=== PATIENT | female | born 1935 | race Caucasian/White ===

== ENCOUNTER 2017-01-17 08:04 | Inpatient (IN) ==
--- NOTE | 2017-01-17 08:41 | Diag Imaging Result Doc PS360 ---
EXAM: RIBS UNILAT W/PA CHEST LEFT HISTORY: fall TECHNIQUE: PA and left rib series, five views COMMENT: There is a pneumothorax on the left with slight shift of the mediastinum to the right which may indicate a degree of tension. The right lower lobe is partially collapsed. The apical portion of the pneumothorax measures in excess of 2.5 cm. There may be COPD. There is some evidence of old rib fractures on the right specifically the lateral fourth and fifth ribs. No appreciable left rib fractures are present. The heart and pulmonary vascularity are within normal limits. IMPRESSION: Left pneumothorax. The findings were discussed with Eric Nguyen MD at 01/17/2017 8:37 AM. Electronically signed by Jw Garcia 01/17/2017 8:39 AM
[2017-01-17] MEDS ORDERED: MORPHINE ONE (09:07)
[2017-01-17] MEDS ORDERED: ZOFRAN ONE (09:07)
[2017-01-17] MEDS ORDERED: ZOFRAN IV ONE ×2 (09:13→11:05)
[2017-01-17] MEDS ORDERED: MORPHINE IV ONE ×2 (09:13→11:05)
--- NOTE | 2017-01-17 09:58 | Diag Imaging Result Doc PS360 ---
EXAM: CHEST-PORTABLE HISTORY: CHEST TUBE PLACEMENT TECHNIQUE: Portable sitting AP COMPARISON: Compared to taken at 8:27 AM FINDINGS: Interval placement of a small left-sided chest tube. Reexpansion of the left lung with marked decrease in the size of left-sided pneumothorax. No definite pneumothorax identified on the current exam. Right lung remains well expanded and clear. Cardiomegaly. IMPRESSION: Reexpansion of the left lung following placement of a left-sided chest tube. Electronically signed by Dwayne Eddy 01/17/2017 9:55 AM
[2017-01-17 11:25] LABS: HEMOGLOBIN 13.8 g/dL (12.0-16.0); MCH 29.7 PG (27-31); MCHC 33.7 g/dL (33-37); MCV 88.4 FL (81-99); MPV 10.1 FL (7.4-10.4); RBC 4.64 XMIL (4.2-5.4)
[2017-01-17 11:44] LABS: AGAP 14; ALBUMIN 3.8 g/dL (3.5-5.0); ALKALINE PHOSPHATASE 72 U/L (32-104); BUN 14 mg/dL (8-22); CALCIUM 8.8 mg/dL (8.8-10.2); CHLORIDE 107 mmol/L (98-107); COSMO 288; GOT 19 U/L (10-30); GPT 13 U/L (10-36); POTASSIUM 3.9 mmol/L (3.5-5.1); SODIUM 145 mmol/L (136-145); TCO2 24 mmol/L (25-35); TOTAL BILIRUBIN 0.33 mg/dL (0.20-1.00); TOTAL PROTEIN 7.4 g/dL (6.3-8.3)
[2017-01-17 11:45] LABS: INR 0.96; PROTIME 10.1 Seconds (9.2-11.7)
[2017-01-17] MEDS ORDERED: ZOFRAN IV PRN (12:24)
--- NOTE | 2017-01-17 13:05 | HISTORY AND PHYSICAL ---
PRIMARY CARE PHYSICIAN: Dr. Yared Ricks. CHIEF COMPLAINT: Fall and rib pain. HISTORY OF PRESENT ILLNESS: Mrs. Francis is a pleasant 81-year-old, female with a history of hypothyroidism, SVT, GERD, migraine headaches, who sustained an accidental trip and fall yesterday while walking to her bed. At that time, she fell in between a coffee table and couch, her face hit the glass portion of the table and the glass did not break but flipped over to her back and hit her on the back which caused a tremendous amount of pain. Overnight she was experiencing pain on the left side, left shoulder and had some shortness of breath. This morning, the pain became to the point where she could not bear it anymore and came to the ER. In the ER, she had a chest x-ray done which showed a left-sided pneumothorax. Dr. Nguyen in the ER placed a chest tube, post procedure chest x-ray showed very good improvement of the pneumothorax. Her laboratory data is unremarkable. General Surgery has been consulted for chest tube management and the patient is now going to be admitted for further treatment and evaluation. Of note, we also went ahead and ordered a CT of the head and C-spine without contrast as she did hit her head but she denies any visual disturbances or neck pain but she is reporting a headache. PAST MEDICAL HISTORY: 1. Hypothyroidism. 2. Depression. 3. Migraine headaches. 4. SVT controlled on beta-zaria therapy. 5. GERD. 6. Recent diagnosis of bronchitis on antibiotic therapy. PAST SURGICAL HISTORY: She has had a hysterectomy and 2 uterine masses removed which were benign. SOCIAL HISTORY: The patient is . She lives alone. She denies tobacco, alcohol or drug use. FAMILY HISTORY: Noncontributory. REVIEW OF SYSTEMS: Fourteen-point review of systems obtained and found to be negative with the exception of the HPI. ALLERGIES: No known drug allergies. HOME MEDICATIONS: Tessalon Perles 200 mg t.i.d., Omnicef 300 mg p.o. b.i.d., Celexa 40 mg daily, Synthroid 125 mcg p.o. daily, Lopressor 50 mg daily, Prilosec 20 mg b.i.d., Topamax 150 mg daily. PHYSICAL EXAMINATION: VITAL SIGNS: Blood pressure is 120/63, heart rate 71, respiratory rate for 14, O2 saturation 99% on 2 L. Temperature is 98.1 degrees. GENERAL: This is an elderly female, lying in hospital bed. No acute distress. NEUROLOGIC: The patient is a bit sleepy from pain medicine but she is oriented and follows commands without focal deficits. HEENT: Head is atraumatic, normocephalic. Her pupils are equal, round, reactive to light. Oral mucosa is moist. Oropharynx is clear. NECK: Supple. There is no JVD or carotid bruits. CHEST: Clear to auscultation bilaterally. Diminished over the left lung base. Chest tube is noted of the left lateral lung. Dressing is clean, dry, and intact. Chest tube shows no leaks. ABDOMEN: Soft, nondistended, nontender. Bowel sounds are positive. EXTREMITIES: Without edema, clubbing or cyanosis. Pulses are palpable bilaterally. DIAGNOSTIC DATA: Ribs with chest x-ray showed a left-sided pneumothorax. Chest x-ray post chest tube insertion shows re-expansion of the left lung following placement of left- sided chest tube. LAB WORK: WBC 9.43, hemoglobin 13.8, hematocrit 41.0 platelet count 271,000. PT 10.1, INR 0.96. Sodium 145, potassium 3.9, chloride 107, CO2 24, anion gap 14, BUN 14, creatinine 0.8, glucose 86, LFTs within normal limits. Albumin 3.8. ASSESSMENT AND PLAN: 1. Fall with left-sided pneumothorax: Chest tube has been inserted. We will consult Dr. Reynoso with General Surgery and continue pain management and check daily chest x- rays as well as daily labs. Given the fact that she did hit her face on the table we are going to check a head and C-spine CT without contrast. 2. Hypothyroidism: We will check a TSH in the morning and continue her Synthroid. 3. Supraventricular tachycardia: Rate is normal and rhythm is regular. We will monitor on telemetry. Continue her metoprolol. 4. Migraine headaches. Continue Topamax as needed. 5. Gastroesophageal reflux disease: Chronic and stable, continue home medications. 6. The patient may need some physical therapy and rehab secondary to the pain. We will monitor progress closely and consult physical therapy while she is here. 7. DVT prophylaxis. With SCDs. Further recommendations to follow. Dictated by CESIA Crespo for José Miguel Taylor MD cc: CESIA Crespo MD Kenneth E. Mashburn, MD I have seen and examined the patient. I agree with the above evaluation and plan - Left Pneumothorax s/p chest tube placement. chest x-ray reveals resolution. MTDD
--- NOTE | 2017-01-17 14:06 | Diag Imaging Result Doc PS360 ---
EXAM: HEAD/C-SPINE W/O CONTRAST HISTORY: fall, head injury TECHNIQUE: COMPARISON: None. FINDINGS: Head: No parenchymal hemorrhage. No epidural or subdural hematoma. No subarachnoid hemorrhage. No skull fracture. No sinus opacification. Minimal mucus in the right and left sphenoid sinuses. Cervical spine: There is mild scoliosis. No precervical soft tissue swelling. No subluxation. No fracture. IMPRESSION: No injury to the head or cervical spine. Electronically signed by Dwayne Eddy 01/17/2017 2:04 PM
[2017-01-17] MEDS: MORPHINE IV PRN ×3 (15:10→23:44)
[2017-01-17] MEDS: DUONEB (A & A) INH SCH ×3 (16:08→22:48)
--- NOTE | 2017-01-17 17:00 | CONSULTATION ---
DATE OF CONSULTATION: 01/17/2017 REQUESTING PHYSICIAN: Dr. Taylor with the hospitalist service. CONSULT REGARDING: Left pneumothorax. HISTORY OF PRESENT ILLNESS: An 81-year-old female who fell on her coffee table and her couch last night and experienced left chest pain. She was initially seen in the emergency department, found to have a left-sided pneumothorax which was fixed by Dr. Nguyen in the emergency department with a chest tube placement. She reports that after her chest tube was placed she is breathing better. She is having no chest pain at this point besides chest wall pain. She denies any kind of shortness of breath. She did have a postprocedural chest x-ray that showed re-expansion of her lung. I was asked to evaluate for management of the chest tube. PAST MEDICAL HISTORY: Includes: 1. Hypothyroidism. 2. Depression. 3. Migraine headaches. 4. Supraventricular tachycardia. 5. Gastroesophageal reflux disease. 6. Recent bronchitis. PAST SURGICAL HISTORY: Includes hysterectomy. FAMILY HISTORY: Reviewed with patient, noncontributory. SOCIAL HISTORY: Lives alone denies alcohol, tobacco or illicit drugs. ALLERGIES: None. HOME MEDICATIONS: Tessalon Perles, Omnicef, Celexa, Synthroid, Lopressor, Prilosec, Topamax. REVIEW OF SYSTEMS: A full 10 point review of systems obtained, negative other than specified in HPI. PHYSICAL EXAMINATION: Vital Signs: Patient is currently afebrile. Her vital signs have been stable. Her O2 saturation is 97% on 0.5 L nasal cannula. General Exam: No acute distress. Alert, interactive, female, looks stated age. HEENT: Normocephalic, atraumatic. Pupils equal, round, reactive to light. Mucous membranes moist. Oropharynx benign. Neck: Supple. Trachea midline. Cardiovascular: Regular rate and rhythm. Lungs: Grossly clear. Chest wall: Tenderness in the left side. Abdomen: Soft, nontender, nondistended. Extremities: Moves all extremities. Neurologic: Grossly intact. Skin: No signs of jaundice. Vascular: All extremities perfused. DIAGNOSTIC DATA: Laboratory reviewed. Essentially normal chest x-ray and CT scans reviewed. ASSESSMENT AND PLAN: An 81-year-old, female with left-sided pneumothorax and multiple medical comorbidities. 1. Left-sided pneumothorax. At this time the chest tube has resolved the pneumothorax. I placed a chest tube to water seal. We will recheck the chest x-ray in the morning. If it is still expanded we will remove. 2. Multiple medical comorbidities currently being managed by the hospitalist service. cc: William Reynoso MD
[2017-01-17] MEDS: PRILOSEC PO SCH (21:29)
[2017-01-18] MEDS: DUONEB (A & A) INH SCH ×6 (03:21→22:49)
[2017-01-18] MEDS: MORPHINE IV PRN ×3 (04:00→13:41)
--- NOTE | 2017-01-18 06:01 | PROGRESS NOTE ---
DATE: 01/18/2017 SUBJECTIVE: Patient doing okay. No major issues. No shortness of breath. She does have some neck and head discomfort after her fall but again, no other issues. OBJECTIVE: Vital Signs: Patient is currently afebrile. Her vital signs are stable. General Examination: No acute distress. Cardiovascular: Regular rate and rhythm. Lungs: Grossly clear. Chest: Chest tube in the left side does not change with tidal volumes. Abdomen: Soft, nontender, nondistended. Extremities: Moves all extremities. Neurologic: Grossly intact. Skin: No signs of jaundice. Vascular: All extremities perfused. Laboratory Data: None. Chest x-ray currently pending. ASSESSMENT/PLAN: An 81-year-old, female, status post fall with left-sided pneumothorax. 1. Multiple medical comorbidities, currently being managed by the hospitalist service. 2. Left-sided pneumothorax. At this time, given the way her chest tube is not changing with respirations, I suspect there is a chance that the chest tube has already been slightly pulled out of the chest cavity. We will follow up with chest x-ray. If it is out and the lung is still up, we will remove the chest tube at the bedside. If the chest tube is out and lung is still down, we will consider placing a larger caliber chest tube. cc: William Reynoso MD
--- NOTE | 2017-01-18 06:20 | Diag Imaging Result Doc PS360 ---
EXAM: CHEST-PORTABLE HISTORY: pneumothorax TECHNIQUE: Portable AP COMPARISON: 01/17/2017 FINDINGS: The lungs are well expanded. No pneumothorax identified. No change in the position small left chest tube. No pleural effusions are seen. Heart is not enlarged. The vessels are not distended. IMPRESSION: No pneumothorax. Electronically signed by Dwayne Eddy 01/18/2017 6:18 AM
[2017-01-18] MEDS: SYNTHROID PO SCH (06:39)
--- NOTE | 2017-01-18 06:50 | PROGRESS NOTE ---
DATE: 01/18/2017 Reviewed patient's chest x-ray from this morning. Did not see an obvious pneumothorax. Her overall respiratory status is improved. Pulled her chest tube under normal conditions. Placed a sterile dressing on the area. We will repeat a chest x-ray at 10 o'clock. cc: William Reynoso MD
[2017-01-18 07:16] LABS: HEMOGLOBIN 12.5 g/dL (12.0-16.0); MCH 28.9 PG (27-31); MCHC 32.9 g/dL (33-37); MPV 9.9 FL (7.4-10.4); RBC 4.32 XMIL (4.2-5.4)
[2017-01-18 07:36] LABS: AGAP 12; BUN 13 mg/dL (8-22); CALCIUM 8.4 mg/dL (8.8-10.2); CHLORIDE 104 mmol/L (98-107); COSMO 285; POTASSIUM 3.8 mmol/L (3.5-5.1); SODIUM 143 mmol/L (136-145); TCO2 27 mmol/L (25-35)
[2017-01-18] MEDS: TOPAMAX PO SCH (08:37)
[2017-01-18] MEDS: CELEXA PO SCH (08:38)
[2017-01-18] MEDS: LOPRESSOR PO SCH (08:38)
[2017-01-18] MEDS: PRILOSEC PO SCH (08:38)
--- NOTE | 2017-01-18 10:20 | Diag Imaging Result Doc PS360 ---
EXAM: CHEST-PORTABLE HISTORY: chest tube removal TECHNIQUE: Upright AP portable COMPARISON: Compared to study performed earlier FINDINGS: The lungs remain well expanded. I do not identify a PICC line. No cardiomegaly. The vessels are not distended. Pleural effusions identified. IMPRESSION: Stable chest Electronically signed by Dwayne Eddy 01/18/2017 10:17 AM
--- NOTE | 2017-01-18 12:21 | PROGRESS NOTE ---
DATE: 01/18/2017 SUBJECTIVE: Today Ms. Francis referred to be doing a lot better. Still has residual chest pain around the site of where the tube used to be. OBJECTIVE: Vital signs: Blood pressure is 131/55, pulse of 71, respiration is 16, temperature is 99.6 degrees. General: Ms. Francis is an 81-year-old female. She is in bed. She did not seem to be in any distress. HEENT: Mucosa is pink and moist. Anicteric. Acyanotic. Neck: Supple. Chest: Air entry is bilaterally reduced but no crepitations. No rhonchi. Cardiovascular: Regular rate and rhythm. Abdomen: Soft, nontender. Extremities: No pedal edema. There is mild tenderness at the left posterolateral aspect of the chest wall where the tube use to be. KITCHENHAND: Patient is alert and oriented x4. No focal neurological deficit. LABORATORY DATA: Has been reviewed. Chemistry and CBC are completely unremarkable. A repeat chest x-ray this morning at about 10:30 shows lungs are well expanded. No pigtail catheter is seen. No cardiomegaly. Stable chest. The pneumothorax has completely re- expanded. ASSESSMENT: 1. Blunt trauma to left side with pneumothorax status post chest tube placed. This has been remove this morning. Subsequent chest x-rays have shown re-expansion of the lungs and there is no residual pneumothorax. Patient is being followed up by Dr. Reynoso. We will wait for him to evaluate her. If it is okay with him, I think we will be able to discharge the patient home. 2. Hypothyroidism. Will continue with Synthroid. 3. Migraine headaches. Patient is on Topamax. PLAN: So in general I think Ms. Francis is relatively stable. The chest tube was removed today. Subsequent chest x-rays have shown re-expansion of the lungs and the resolution of the pneumothorax. If it is okay with surgery. We will discharge her today. cc: José Miguel Taylor MD MTDShelbi
[2017-01-18] MEDS: NORCO-7.5 PO PRN (18:12)
[2017-01-19] MEDS: NORCO-7.5 PO PRN ×2 (00:14→06:19)
[2017-01-19] MEDS: DUONEB (A & A) INH SCH ×3 (04:21→11:33)
[2017-01-19] MEDS: SYNTHROID PO SCH (06:19)
[2017-01-19 06:32] LABS: HEMOGLOBIN 12.3 g/dL (12.0-16.0); MCH 29.9 PG (27-31); MCHC 33.2 g/dL (33-37); MPV 9.4 FL (7.4-10.4); RBC 4.11 XMIL (4.2-5.4)
--- NOTE | 2017-01-19 06:34 | PROGRESS NOTE ---
DATE: 01/19/2017 SUBJECTIVE: The patient is doing well. The lung remained inflated after chest tube was pulled. OBJECTIVE: Patient is currently afebrile. Her vital signs are stable. She is in no acute distress.General: No acute distress. Cardiovascular: Regular rate and rhythm. Lungs: Grossly clear. Abdomen: Soft, nontender, and nondistended. Chest wall with some tenderness on the left side. No significant change. DIAGNOSTIC: Chest x-ray from this morning. Official read is pending but per my view the lungs still seems inflated. ASSESSMENT/PLAN: An 81-year-old female status post traumatic pneumothorax after blunt chest trauma. 1. Pneumothorax. At this time, her chest x-ray appears to be stable. I think she could be safely discharged home and would like to see her my office 1-2 weeks. Patient is to avoid dramatic changes in pressure like scuba diving or plane flights until this is completely healed. cc: William Reynoso MD MTDD
[2017-01-19 06:53] LABS: AGAP 13; BUN 9 mg/dL (8-22); CALCIUM 8.5 mg/dL (8.8-10.2); CHLORIDE 105 mmol/L (98-107); COSMO 284; POTASSIUM 3.6 mmol/L (3.5-5.1); SODIUM 143 mmol/L (136-145); TCO2 25 mmol/L (25-35)
--- NOTE | 2017-01-19 07:06 | Diag Imaging Result Doc PS360 ---
EXAM: CHEST-PORTABLE HISTORY: pneumothorax TECHNIQUE: Erect AP portable chest at 0540 COMMENT: The inspiration is slightly suboptimal. There is atelectasis in the lingula. The heart size and pulmonary vascularity are within normal limits. Compared to 01/18/2017 there has been no significant change. IMPRESSION: Stable chest. Electronically signed by Jw Garcia 01/19/2017 7:03 AM
[2017-01-19 07:51] VITALS: BP 134/63
[2017-01-19] MEDS: TOPAMAX PO SCH (08:25)
[2017-01-19] MEDS: CELEXA PO SCH (08:25)
[2017-01-19] MEDS: LOPRESSOR PO SCH (08:25)
--- NOTE | 2017-01-19 19:49 | DISCHARGE SUMMARY ---
ADMISSION DATE: 01/17/2017 DISCHARGE DATE: 01/19/2017 CONSULTATIONS: William Reynoso MD with General Surgery. PERTINENT PROCEDURES: 1. Chest x-ray showed a left pneumothorax. 2. Head cervical spine CT showed mild scoliosis. No precervical soft tissue swelling. No subluxation. No fracture. No injury to the head or cervical spine. 3. Portable chest x-ray showed re-expansion of the left lung following placement of a left-sided chest tube. 4. Chest x-ray following chest tube removal showed a stable chest. 5. Chest x-ray before discharge was still stable on 01/19/2017. DISCHARGE DIAGNOSES: 1. Pneumothorax status post chest tube placement and discontinued. Follow up with Dr. Reynoso in 1- 2 weeks with instructions to avoid dramatic changes in pressure like scuba diving or plane flights until she is completely healed. Stable. 2. Blunt trauma to left side causing pneumothorax as stated in #1. 3. Hypothyroidism. Continue Synthroid. 4. Migraines. Continue Topamax. HOSPITAL COURSE: Briefly, Ms. Francis is an 81-year-old, female with a past medical history of hypothyroidism, SVT, GERD, migraines who sustained an accidental trip and fall while walking to her bed. She fell in between a coffee table and a couch. Her face hit the glass portion of the table. The glass did not break but flipped over onto her back and hit her on the back which caused a tremendous amount of pain. Overnight she was experiencing pain on her left side, her left shoulder and some shortness of breath. In the morning the pain had gotten to the point where she could no longer bear it. She came to the ED. She had a chest x-ray done that showed a left-sided pneumothorax. Dr. Nguyen in the ED placed a chest tube. Postprocedure chest x-ray showed very good improvement of the pneumothorax. General Surgery was consulted for chest tube management. She also had a negative CT of the head as well as C-spine. Ms. Francis's chest tube came out on 01/18. She was watched overnight. Per Dr. Reynoso, the patient is appropriate for discharge home. He would like to see her back in his office in 1-2 weeks and to avoid dramatic changes in pressure like scuba diving or plane flights until this is completely healed. Again her lung has remained inflated after her chest tube was pulled. VITAL SIGNS AT TIME OF DISCHARGE: Temperature is 97.7 degrees, heart rate 77, respirations 18, blood pressure 134/63, O2 is 97% on room air. DISCHARGE DIET: Regular. DISCHARGE MEDICATIONS PER DR. HAMILTON: 1. Benzonatate 200 mg p.o. t.i.d. 2. Omnicef 300 mg p.o. b.i.d. 3. Celexa 40 mg p.o. daily. 4. [place] 7.5, 1 each p.o. q.6 hours p.r.n. 5. Synthroid 125 mcg p.o. daily. 6. Lopressor 50 mg p.o. daily. 7. Prilosec 20 mg p.o. b.i.d. 8. 150 mg p.o. daily. FOLLOWUP: The patient is being discharged home to follow up with Dr. William Reynoso in 1-2 weeks. Again, patient is to avoid any pressure-like changes like going scuba diving or in a plane until she is completely healed. She can also follow up with her primary care physician, Dr. Yared Ricks, in 7-10 days. The patient can return to the ED for any worsening of symptoms. DISCHARGE TIME: 30 minutes. Dictated by CESIA Hercules for José Miguel Hamilton MD cc: MD Yared Bang MD
--- NOTE | 2017-02-09 17:22 | PROVIDER DOCUMENTATION ---
This chart was entered by Meghana De La Paz Scribe, acting as scribe for Eric Kenney MD. HPI-General Adult - General Chief Complaint: Fall Stated Complaint: FALL Time Seen by Provider: 01/17/17 09:22 Source: patient Allergies/Adverse Reactions: Patient Allergies Allergy/AdvReac Type Severity Reaction Status Date / Time No Known Allergies Allergy Verified 01/17/17 08:20 Home Medications: Home Medication List Medication Instructions Recorded Confirmed Last Taken Type Benzonatate 200 mg PO TID 01/17/17 01/17/17 01/16/17 20:00 History 200 MG CefDINIR [Omnicef] 300 mg PO BID 01/17/17 01/17/17 01/16/17 20:00 History 300 MG Citalopram [Celexa] 40 mg PO DAILY 01/17/17 01/17/17 01/16/17 08:00 History 40 MG Levothyroxine [Synthroid] 125 microgm PO DAILY 01/17/17 01/17/17 01/16/17 08:00 History 125 MICROGM Metoprolol [Lopressor] 50 mg PO DAILY 01/17/17 01/17/17 01/16/17 08:00 History 50 MG Omeprazole [Prilosec] 20 mg PO BID 01/17/17 01/17/17 01/16/17 20:00 History 20 MG Topiramate 150 mg PO DAILY 01/17/17 01/17/17 01/16/17 08:00 History 150 MG Hydrocodone/APAP 7.5 mg/325 mg 1 each PO Q6H PRN PRN #20 tablet 01/19/17 Unknown Rx [[place]-7.5] - History of Present Illness -Gen Adult Nature of Presenting Problems: PT IS A 81YOF PRESENTING TO THE ED C/O FALL. PT STATES THAT SHE HAS BEEN TREATED RECENTLY FOR URI AND ON ANTIBIOTICS PER PCP. PT STATES SHE GOT UP LAST NIGHT AND TRIPPED OVER HER COFFEE TABLE AND FELL WITH THE GLASS LANDING ON TOP OF HER. PT STATES SHE PUSHED THE GLASS OFF OF HER PUT THE TABLE BACK TOGETHER AND WENT TO BED. PT CALLED DAUGHTER THIS MORNING WITH LEFT FLANK SIDE PAIN AND SOB. UPON ARRIVAL PT WAS SOB AND IN SIGNIFICANT PAIN. NO LOC OR OTHER INJURY NOTICED. Location of Pain/Injury: reports: upper body (LEFT FLANK/SIDE AREA) Pain Radiation: reports: no radiation Quality of Pain: reports: aching Severity: reports: moderate, severe Onset/Duration: reports: 24 hours ago Timing: reports: still present Context/Activities at Onset: reports: recent trauma history Modifying Factors: improves with: nothing Associated Symptoms: reports: back/neck pain (LEFT BACK/FLANK AREA), fatigue, malaise, shortness of breath, pain with inspiration, weakness Similar Symptoms Previously?: No Recently seen or treated by another doctor?: No Review of Systems - Adult - REVIEW OF SYSTEMS - ADULT Constitutional: reports: no symptoms reported Eyes: reports: no symptoms reported Ears, Nose, Mouth & Throat: reports: no symptoms reported Cardiovascular: reports: no symptoms reported Respiratory: reports: see HPI, dyspnea on exertion, shortness of breath. denies : excessive sputum production Gastrointestinal: reports: no symptoms reported Genitourinary: reports: no symptoms reported Musculoskeletal: reports: no symptoms reported Integumentary: reports: no symptoms reported Neurological: reports: no symptoms reported Psychiatric: reports: no symptoms reported Endocrine: reports: no symptoms reported Hematologic/Lymphatic: reports: no symptoms reported Allergic/Immunologic: reports: no symptoms reported All Other Systems: Reviewed and Negative Past History - Adult - PAST MEDICAL HISTORY-ADULT Review of Records: reports: Old Records Reviewed, Nursing Assessment Review, Medications Reviewed, Social history reviewed & non-contributory. Major Childhood Illnesses: reports: denies history Cardiovascular: reports: denies history Respiratory: reports: denies history Gastrointestinal: reports: denies history Obstetrical/Gynecological: reports: denies history Genitourinary: reports: denies history Musculoskeletal: reports: denies history Neurological: reports: denies history Endocrine/Immune: reports: denies history Other Conditions: reports: denies history - IMMUNIZATION STATUS Childhood Immunizations: See Nurse Assessment Flu Vaccine: See Nurse Assessment - FAMILY HISTORY Family History: reviewed, not pertinent - SOCIAL HISTORY Smoking: denies, non-smoker Substance Use: none/never, denies Alcohol Use Frequency: never Living Situation: family Physical Exam-General - PHYSICAL EXAM-ADULT Initial Vital Signs Reviewed: Yes - CONSTITUTIONAL General Appearance: appears well, alert, moderate distress, severe distress, anxious - EYES Eyes: PERRL/EOMI, pink conjunctivae - HEAD, EARS, NOSE, MOUTH & THROAT HENMT: normocephalic/atraumatic, moist mucous membranes, normal ENT inspection, TMs normal, pharynx normal - NECK Neck: non-tender, full range of motion, supple, normal inspection - RESPIRATORY Respiratory: respiratory distress, decreased breath sounds, accessory muscle use , dull on percussion, pain on inspiration. negative: chest non-tender, lungs clear, normal breath sounds, no pleuratic chest pain, no respiratory distress, no accessory muscle use - CARDIOVASCULAR Cardiovascular: normal peripheral pulses, regular rate, rhythm, no edema, no gallop, no JVD, no murmur - GASTROINTESTINAL (ABDOMEN) Abdominal Exam: normal bowel sounds, non tender, soft, no organomegaly, no pulsatile mass - LYMPHATIC Lymphatic: no adenopathy - MUSCULOSKELETAL Back Exam: normal inspection, no CVA tenderness, no vertebral tenderness Extremity: normal range of motion, non-tender, normal gait, normal inspection, no pedal edema, no calf tenderness, normal capillary refill, pelvis stable - SKIN Integumentary: normal color, normal turgor, warm/dry - NEUROLOGIC Neurologic: instructional support specialist II-XII nml as tested, grossly normal, no motor/sensory deficits - PSYCHIATRIC Psych/Mental Status: normal mood/affect, normal thought content, normal thought process, oriented x 3 Progress - PLAN OF CARE/RESULTS Progress/Plan/Lab Results: Vital Signs - 8 hr 01/17/17 08:07 Temperature 98.1 F Pulse Rate 79 Respiratory Rate 20 Blood Pressure 136/78 O2 Sat by Pulse Oximetry 97 Orders Category Date Time Status CHEST-PORTABLE [RAD] Stat Exams 01/17/17 09:12 Completed RIBS UNILAT W/PA CHEST LEFT [RAD] Stat Exams 01/17/17 08:19 Completed Morphine Med 01/17/17 09:07 Discontinued 4 mg .ROUTE .STK-MED ONE Morphine Med 01/17/17 09:13 Discontinued 4 mg IV NOW ONE Ondansetron [Zofran] Med 01/17/17 09:07 Discontinued 4 mg .ROUTE .STK-MED ONE Ondansetron [Zofran] Med 01/17/17 09:13 Discontinued 4 mg IV NOW ONE Laboratory Tests 01/17/17 01/17/17 01/17/17 09:16 09:16 09:16 WBC 9.43 RBC 4.64 Hgb 13.8 Hct 41.0 MCV 88.4 MCH 29.7 MCHC 33.7 RDW Std Deviation 13.8 Plt Count 271 MPV 10.1 PT 10.1 INR 0.96 Sodium 145 Potassium 3.9 Chloride 107 Carbon Dioxide 24 L Anion Gap 14 BUN 14 Creatinine 0.8 Estimated GFR/1.73 m2 > 60 BUN/Creatinine Ratio 18 Glucose 86 Calculated Osmolality 288 Calcium 8.8 Total Bilirubin 0.33 AST 19 ALT 13 Alkaline Phosphatase 72 Total Protein 7.4 Albumin 3.8 Globulin 3.6 Albumin/Globulin Ratio 1.1 Orders Category Date Time Status CHEST-PORTABLE [RAD] Stat Exams 01/17/17 09:12 Completed RIBS UNILAT W/PA CHEST LEFT [RAD] Stat Exams 01/17/17 08:19 Completed CBC WITH NO DIFF [HEME] Stat Lab 01/17/17 09:16 Completed COMPREHENSIVE METABOLIC PANEL [CHEM] Stat Lab 01/17/17 09:16 Completed PROTIME WITH INR [COAG] Stat Lab 01/17/17 09:16 Completed Morphine Med 01/17/17 09:07 Discontinued 4 mg .ROUTE .STK-MED ONE Morphine Med 01/17/17 09:13 Discontinued 4 mg IV NOW ONE Morphine Med 01/17/17 11:05 Discontinued 4 mg IV NOW ONE Ondansetron [Zofran] Med 01/17/17 09:07 Discontinued 4 mg .ROUTE .STK-MED ONE Ondansetron [Zofran] Med 01/17/17 09:13 Discontinued 4 mg IV NOW ONE Ondansetron [Zofran] Med 01/17/17 11:05 Discontinued 4 mg IV NOW ONE Transfer/Admit Order [TRANSFER] Routine Transfer 01/17/17 11:09 Ordered Vital Signs - 24 hr 01/17/17 08:07 01/17/17 10:02 01/17/17 11:36 Temperature 98.1 F Pulse Rate 79 71 73 Respiratory Rate 20 20 12 Blood Pressure 136/78 127/67 128/64 O2 Sat by Pulse Oximetry 97 98 98 Result Diagrams: 01/19/17 06:15 01/19/17 06:15 - XRAY 1 XRAY: Bilateral XRAY Study: Chest, Ribs (LEFT PNEUMOTHORAX, REPORTED TO DR KENNEY [id number]) 2 XRAY: Bilateral XRAY Study: Chest (RE-EXPANSION OF THE LEFT LUNG FOLLOW PLACEMENT OF LEFT-SIDED CHEST TUBE) - CONSULTS/PCP/HOSPITALIST Notification #1 *Consult/PCP/Hospitalist*: DR OLSEN Time Discussed: 10:00 Reason/Comments: DR KENNEY CONSULT FOR POST CHEST TUBE Consult Disposition: Admit #[address]: [address] OLSEN Time Discussed: 11:07 Reason/Comments: PAGED AGAIN AND RETURNED CALL, ACCEP-MK AND REQUEST ADMIT FROM HOSP Consult Disposition: Admit #3 Consult: ANNMARIE Time Discussed: 11:09 Reason/Comments: HOSPITALIST AGREED TO ADMIT AND ADD DR OLSEN TO CONSULT Consult Disposition: Admit Procedures - CHEST TUBE Left Mid-Axillary Chest Time-Out Verification Completed?: Yes Site Prepped: Kit Utilized, Betadine, Sterile Drapes Applied Anesthetic: 1%, Lidocaine w/ Epinephrine Volume of Anesthesia (ml's): 12 [place] of Air [place]: Yes Number of Attempts: 1 Connected to Wall Suction?: Yes Tube Drainage: see nurses notes Tube Sutured to Skin: Yes Placement Verified by XRAY?: Yes Procedure Comment: PT TOLERATED PROCEDURE AND STATES "I CAN BREATH NOW" Departure - Departure Date of Disposition Decision: 01/19/17 Time of Disposition Decision: 11:58 DIAGNOSIS: Pneumothorax on left Disposition: ADMITTED INPATIENT 09 Certified Medical Emergency: Emergent Condition: Stable - Critical Care Note This patient required my direct & personal management of CC.: Yes Total Time (mins): 45 (DR KENNEY) Critical Care Statement: This patient required my direct personal management to treat or rule out processes, the absence of which, could potentiallly result in sudden, clinically significant life or limb threatening deterioration. This chart was documented by the indicated scribe, (Meghana De La Paz Scribe) and accurately reflects the services I performed and decisions made by me, Eric Kenney MD, as attested by the provider's signature.
== END 2017-01-19 13:01 | disposition home or self-care (01) ==
LOC: ED 08:04 → 3N 12:00
PROVIDERS: ATTEND Internal Medicine